=== PATIENT | male | born 1995 | race Caucasian/White ===

== ENCOUNTER 2016-06-22 20:36 | Emergency (ER) | payer OTHER ==
[2016-06-22] MEDS ORDERED: HYDROCODONE/APAP 5/325 TAB PO ONE (20:48)
--- NOTE | 2016-06-22 21:01 | EDPHY ---
H & P Stated Complaint: L ankle injury playing basketball - Personal History Current Tetanus/Diphtheria Vaccine: Yes - Medical/Surgical History Hx Asthma: No Hx Chronic Respiratory Disease: No Hx Diabetes: No Hx Cardiac Disease: No Hx Renal Disease: No Hx Cirrhosis: No Hx Alcoholism: No Hx HIV/AIDS: No Hx Splenectomy or Spleen Trauma: No Other PMH: PSHx: r rotator cuff repair. PMHx: environmental allergies - Social History Smoking Status: Never smoked HPI/ROS: CHIEF COMPLAINT: Ankle pain HISTORY OF PRESENT ILLNESS: left ankle pain that started while playing basketball this evening. He reports an inversion injury. No trauma elsewhere. Moderate pain to the lateral malleolus, mild pain to the medial malleolus. No midfoot tenderness, heel tenderness, blake or knee pain. No injury elsewhere. Able to ambulate but painful to do so. Some improvement arrest. No radiating pain. No sensory changes. No other associated complaints or modifying factors REVIEW OF SYSTEMS: Ten systems reviewed and are negative unless otherwise noted in the HPI EXAMINATION General Appearance: Alert, no distress Head: normocephalic, atraumatic Respiratory: No dyspnea Cardiovascular: Pulses normal throughout. Brisk cap refill in all toes of RLE Neurological: A&O, sensory symmetric, strength symmetric without deficit Skin: Warm and dry, Mild ecchymosis is noted Extremities: left lower extremity: Tender to palpation bilateral malleoli. There is no midfoot tenderness. No calcaneal tenderness. No proximal fibular tenderness. Range of motion intact painful. Sensory intact distally. No lacerations or abrasions MDM: ankle sprain while playing basketball earlier this evening. There is mild edema, mild ecchymosis and tenderness bilaterally, greater on the lateral malleolus than medial. X-rays pending at this time. 21:35 Left ankle sprain without any evidence of fracture on x-ray As read by me. No dislocation. He is neurovascular intact distally. Ambulatory but with painful range of motion. Discharge home with walker boot, weight-bearing as tolerated, progress as tolerated. Recommend follow up with Orthopedics for definitive care. Patient comfortable with this plan. ED Precautions: Worsening pain. Erythema, edema, cyanosis, pallor, paresthesia or anesthesia. SUPERVISION: This patient was independently evaluated without the aide of supervising physician. (David Mcknight) Constitutional: Initial Vital Signs Temperature (C) 37.2 C 01/12/17 20:39 Heart Rate 92 06/22/16 20:39 Respiratory Rate 17 06/22/16 20:39 Blood Pressure 139/82 H 06/22/16 20:39 O2 Sat (%) 93 06/22/16 20:39 O2 Delivery Mode Room Air Allergies/Adverse Reactions: No Known Allergies Allergy (Unverified 03/14/16 23:00) Home Medications: Medication Instructions Recorded ZYRTEC 06/22/16 traMADol [Ultram 50 mg (*)] 50 mg PO Q4 PRN #15 tab 06/22/16 Medical Decision Making Other Provider: The patient was evaluated and managed by the midlevel provider. My co- signature indicates that I have reviewed this chart and I agree with the findings and plan of care as documented. I am the secondary supervising physician. (Jeaneth Espino) - Data Points Medications Given: Discontinued Medications Acetaminophen/Hydrocodone Bitart ([place] 5/325) 1 tab PO EDNOW ONE Stop: 06/22/16 20:49 Last Admin: 06/22/16 21:05 Dose: 1 tab Departure - Departure Disposition: Home, Routine, Self-Care Clinical Impression: Left ankle sprain Condition: Good Instructions: Ankle Sprain (ED) Additional Instructions: Follow up with orthopedic physician as listed for definitive care. ER precautions for cyanosis, pallor, paresthesia or anesthesia Referrals: [place],. [Primary Care Provider] - As per Instructions Prescriptions: traMADol [Ultram 50 mg (*)] 50 mg PO Q4 PRN #15 tab PRN Reason: pain
[2016-06-22 21:52] VITALS: BP 131/84; PULSE 90; RESP 18; TEMP 98.6; O2SAT 94
--- NOTE | 2016-06-22 22:05 | DX ---
Left ankle, 3 views History: Trauma, pain. Findings: No acute fracture or dislocation identified. Ankle mortise appears intact without fracture or widening. Mild soft tissue swelling. Impression: 1. No definite acute fracture. 2. Recommend additional imaging if symptoms persist, if clinically indicated.
== END 2016-06-22 21:51 | disposition home or self-care (01) ==
DX: S93.402A Sprain of unspecified ligament of left ankle, initial encounter (principal); X58.XXXA Exposure to other specified factors, initial encounter; Y99.8 Other external cause status; Y93.67 Activity, basketball
CPT/HCPCS: L4386